=== PATIENT | female | born 1990 | race Caucasian/White ===

== ENCOUNTER 2018-03-15 10:32 | Emergency (ER) | payer MEDICAID, OTHER ==
--- NOTE | 2018-03-15 10:44 | ED ---
Headache - HPI Summary HPI Summary: This pt is a 28 y/o female presenting to [facility] via EMS for a headache x5 days. She describes her headache as frontal headache rating it between a 2 and 5 out of 10 in severity. Currently she rates her headache 2/10 in severity. Pt reports she lives at [facility] and they give her her usual medications. She states that last night at around 20:00 pt was given by mistake 4 mg of Risperdal, instead of her usual dose of 0.5 mg Risperdal. Pt notes that this morning she woke up feeling drowsy. Denies fever, chills, neck pain, chest pain, SOB, nausea, vomiting. She was advised to come to the ED by the treatment center for further evaluation. Currently she feels better and awake. Denies hx of headaches. - History Of Current Complaint Chief Complaint: EDHeadache Stated Complaint: HEADACHE Hx Obtained From: Patient Onset/Duration: Started days ago - 5, Still Present Currently Pain Is: Current Pain Scale(0-10)= - 2, Mild Timing: Days - 5 Character: Dull Location of Headache: Frontal Aggravating Factor: Nothing Allevating Factors: Nothing Associated Signs And Symptoms: Negative - Allergies/Home Medications Allergies/Adverse Reactions: Allergies Allergy/AdvReac Type Severity Reaction Status Date / Time Sulfa (Sulfonamide Allergy Rash Verified 03/15/18 10:44 Antibiotics) Home Medications: Home Medications Acetaminophen 650 mg PO Q8H PRN 03/15/18 [History Confirmed 03/15/18] Melatonin 1 - 3 tab PO BEDTIME PRN 03/15/18 [History Confirmed 03/15/18] Omeprazole 20 mg PO DAILY 03/15/18 [History Confirmed 03/15/18] Theragran/minerals TAB* 1 tab PO DAILY 03/15/18 [History Confirmed 03/15/18] Thiamine TAB* [Vitamin B-1 TAB 100 MG*] 1 tab PO DAILY 03/15/18 [History Confirmed 03/15/18] PMH/Surg Hx/FS Hx/Imm Hx Psychiatric History: Reports: Hx Depression, Hx Inpatient Treatment, Hx Bipolar Disorder, Hx Substance Abuse - alcohol abuse, Other Psychiatric Issues/ Disorders - borderline personality disorder Denies: Hx Eating Disorder, Hx of Violent Episodes Against Others Infectious Disease History: No Infectious Disease History: Denies: Traveled Outside the [place] in Last 30 Days - Family History Family History: Mother with anxiety and depression - Social History Alcohol Use: Daily Alcohol Amount: enough to get drunk qd. Substance Use Type: Reports: None Substance Use Comment - Amount & Last Used: muscle relaxers not pt.s Smoking Status (MU): Never Smoked Tobacco Review of Systems Negative: Fever, Chills Negative: Chest Pain Negative: Shortness Of Breath Negative: Abdominal Pain, Vomiting, Nausea Positive: no symptoms reported, see HPI Negative: Other - NEG: neck pain Skin: Negative Positive: Headache All Other Systems Reviewed And Are Negative: Yes Physical Exam - Summary Physical Exam Summary: VITAL SIGNS: Reviewed. GENERAL: Patient is a well-developed and nourished female who is lying comfortable in the stretcher. Patient is not in any acute respiratory distress. HEAD AND FACE: No signs of trauma. No ecchymosis, hematomas or skull depressions. No sinus tenderness. EYES: PERRLA, EOMI x 2, No injected conjunctiva, no nystagmus. EARS: Hearing grossly intact. Ear canals and tympanic membranes are within normal limits. MOUTH: Oropharynx within normal limits. NECK: Supple, trachea is midline, no adenopathy, no JVD, no carotid bruit, no c- spine tenderness, neck with full ROM. CHEST: Symmetric, no tenderness at palpation LUNGS: Clear to auscultation bilaterally. No wheezing or crackles. CVS: Regular rate and rhythm, S1 and S2 present, no murmurs or gallops appreciated. ABDOMEN: Soft, non-tender. No signs of distention. No rebound, no guarding, and no masses palpated. Bowel sounds are normal. EXTREMITIES: FROM in all major joints, no edema, no cyanosis or clubbing. NEURO: Alert and oriented x 3. No acute neurological deficits. Speech is normal and follows commands. SKIN: Dry and warm Triage Information Reviewed: Yes Vital Signs On Initial Exam: Initial Vitals Temp Pulse Resp BP Pulse Ox 98.3 F 98 18 123/80 9 03/15/18 10:36 03/15/18 10:36 03/15/18 10:36 03/15/18 10:36 03/15/18 10:36 Vital Signs Reviewed: Yes Diagnostics - Vital Signs Vital Signs Temp Pulse Resp BP Pulse Ox 03/15/18 10:36 98.3 F 98 18 123/80 9 - Laboratory Lab Statement: Any lab studies that have been ordered have been reviewed, and results considered in the medical decision making process. - EKG 10:58 Cardiac Rate: NL - at 84 bpm EKG Rhythm: Sinus Rhythm Summary of EKG Findings: No ST elevations. Q wave in lead III. Headache Course/Dx - Course Assessment/Plan: This pt is a 28 y/o female presenting to [facility] via EMS for a headache x5 days. She describes her headache as frontal headache rating it between a 2 and 5 out of 10 in severity. Currently she rates her headache 2/10 in severity. Pt reports she lives at [facility] and they give her her usual medications. She states that last night at around 20:00 pt was given by mistake 4 mg of Risperdal, instead of her usual dose of 0.5 mg Risperdal. Pt notes that this morning she woke up feeling drowsy. Denies fever, chills, neck pain, chest pain, SOB, nausea, vomiting. She was advised to come to the ED by the treatment center for further evaluation. Currently she feels better and awake. Denies hx of headaches. Discussed the case with poison control and they recommend an EKG and observation for 2 hours. Since the patient is alert and oriented 3 and has no other complaints, the patient will be discharged home with follow-up from her primary care physician. The patient is hemodynamically stable. The patient is eating and drinking without any nausea and vomiting. The patient also reports that the headache she had last night has resolved. I discussed all the findings and test results with the patient. Patient was instructed to return to the emergency room immediately if any of the symptoms return or worsens. Plan of care was discussed with the patient and understands and agrees. All questions were answered at patient satisfaction. There were no further complaints or concerns. Lung exam before discharge: CTA B/L. Good air exchange. No wheezing or crackles heard. CVS: S1 and S2 present. No murmurs appreciated. Patient is alert and oriented x 3. Patient is hemodynamically stable. Patient will be discharged home with follow up PCP in the next 2-3 days. - Diagnoses Provider Diagnoses: Accidental overdose Discharge - Sign-Out/Discharge Documenting (check all that apply): Patient Departure - Discharge home - Discharge Plan Condition: Stable Disposition: HOME Patient Education Materials: Adult Overdose (ED) Referrals: Priscilla Ochoa MD [Primary Care Provider] - Additional Instructions: FOLLOW UP WITH YOUR PRIMARY CARE PROVIDER IN 2-3 DAYS. RETURN TO THE ED FOR ANY NEW OR WORSENING SYMPTOMS. - Billing Disposition and Condition Condition: STABLE Disposition: Home - Attestation Statements Document Initiated by hCacee: Yes Documenting Scribe: Ebonie Beckman Provider For Whom Scribe is Documenting (Include Credential): Roger Jonas MD Scribe Attestation: Ebonie Tierney, scribed for Roger Jonas MD on 03/15/18 at 1903. Scribe Documentation Reviewed: Yes Provider Attestation: The documentation as recorded by the Ebonie patiño accurately reflects the service I personally performed and the decisions made by , Roger Jonas MD Status of Scribe Document: Viewed
[2018-03-15 12:53] VITALS: BP 101/63
== END 2018-03-15 12:52 | disposition home or self-care (01) ==
LOC: ED 10:32
DX: T43.591A Poisoning by other antipsychotics and neuroleptics, accidental (unintentional), initial encounter (principal); Y92.239 Unspecified place in hospital as the place of occurrence of the external cause; Z88.2 Allergy status to sulfonamides; F32.9 Major depressive disorder, single episode, unspecified; F60.3 Borderline personality disorder
CPT/HCPCS: 93005; 99282